=== PATIENT | male | born 1985 | race Two or more races ===

== ENCOUNTER 2021-09-10 16:58 | Emergency (ER) | payer SELFPAY ==
[~2021-09-10] VITALS: Ht 175.3 cm; Wt 84.8 kg
[2021-09-10 17:18] VITALS: BP 136/95
[2021-09-10] MEDS ORDERED: KETOROLAC TROMETH 60MG/2ML VIAL IM ONE (19:00)
== END 2021-09-10 20:35 | disposition home or self-care (01) ==
LOC: ER 16:58
DX: U07.1 COVID-19 (principal)
CPT/HCPCS: 36415; 87426; 87804; 96372; 99283; J1885